=== PATIENT | male | born 1970 | race Two or more races ===

== ENCOUNTER 2017-03-11 20:14 | Emergency (ER) | payer MEDICAID ==
[~2017-03-11] VITALS: Ht 177.8 cm; Wt 95.3 kg
[2017-03-11 21:33] LABS: *BILIRUBIN,URIN NEGATIVE (NEGATIVE); *BLOOD, URINE NEGATIVE (NEGATIVE); *COLOR,URINE YELLOW (YELLOW); *KETONES,URINE TRACE (NEGATIVE); *PROTEIN,URINE NEGATIVE (NEGATIVE); *UROBILINOGEN,URINE 0.2 E.U./dl (NORMAL); LEUKOCYTE ESTERASE ,URINE NEGATIVE (NEGATIVE); NITRITE, URINE NEGATIVE (NEGATIVE); PH,URINE 7.5 (5.0-8.0); UGLUCOSE NEGATIVE (NEGATIVE)
[2017-03-11 21:40] LABS: *CLARITY,URINE SLIGHTLY CLOUDY (CLEAR)
[2017-03-11 21:42] LABS: URINE AMORPHOUS PHOSPHATES MANY /HPF; WBC,URINE NONE SEEN /HPF (0-3)
[2017-03-11] MEDS ORDERED: KETOROLAC TROMETHAMINE 15 MG INJ IV ONE (21:45)
--- NOTE | 2017-03-11 21:50 | NUR ---
PT WALKED INTO ED C/O LOWER BACK PAIN X3 MONTHS, W/ INCREASING INTENSITY SINCE LAST NIGHT. CURRENTLY RESTING IN A POSITION OF COMFORT, FAMILY AT BEDSIDE.
[2017-03-11 21:53] LABS: BASOPHILS % (AUTO) 0.6 % (0.0-2.0); EOSINOPHILS # (AUTO) 0.4 K/uL (0.0-0.7); EOSINOPHILS % (AUTO) 4.3 % (0.0-7.0); HEMATOCRIT 43.4 % (36.7-47.1); HEMOGLOBIN 14.9 g/dL (12.5-16.3); LYMPHOCYTES # (AUTO) 3.6 K/uL (20.0-40.0); LYMPHOCYTES % (AUTO) 43.1 % (20.5-51.5); MEAN CORPUSCULAR HEMOGLOBIN 30.2 uug (23.8-33.4); MEAN CORPUSCULAR HGB CONC 34 g/dL (32.5-36.3); MEAN CORPUSCULAR VOLUME 87.7 fL (73.0-96.2); MONOCYTES # (AUTO) 0.8 K/uL (2.0-10.0); MONOCYTES % (AUTO) 9.8 % (0.0-11.0); NEUTROPHILS # (AUTO) 3.5 K/uL (1.8-8.9); NEUTROPHILS % (AUTO) 42.2 % (38.5-71.5); PLATELET COUNT (AUTO) 197 K/uL (152-348); RED BLOOD CELL COUNT(AUTO) 4.94 MIL/uL (4.06-5.63); WHITE BLOOD COUNT (AUTO) 8.3 K/uL (3.6-10.2)
[2017-03-11 21:57] LABS: POTASSIUM 4.3 mmol/L (3.5-5.1)
[2017-03-11] MEDS ORDERED: KETOROLAC TROMETHAMINE 30 MG INJ ONE (22:04)
[2017-03-11 22:11] LABS: BILIRUBIN,DIRECT 0.1 mg/dL (0.0-0.2); BILIRUBIN,TOTAL 0.3 mg/dL (0.2-1.0); TOTAL PROTEIN, SERUM 6.8 g/dL (6.4-8.2)
[2017-03-11 22:52] VITALS: BP 118/73
--- NOTE | 2017-03-11 23:02 | NUR ---
Patient discharged to home in stable conditon. Written and verbal after care instructions given. Patient verbalizes understanding of instructions. Pt left w/ steady gait
== END 2017-03-11 23:03 | disposition home or self-care (01) ==
LOC: ER 20:14
DX: M54.5 Low back pain (principal); F17.200 Nicotine dependence, unspecified, uncomplicated
CPT/HCPCS: 36415; 83690; 85025; A4663; J1885